=== PATIENT | male | born 2000 | race Hispanic/Latino ===

== ENCOUNTER 2019-08-14 17:40 | Observation (INO) | payer BC ==
[~2019-08-14] VITALS: Ht 177.8 cm; Wt 59.4 kg
[2019-08-14] MEDS ORDERED: ONDANSETRON HCL INJ 2MG/ML 2ML 2 MG/ML VIAL IV STA (20:04)
[2019-08-14] MEDS ORDERED: FAMOTIDINE 20 MG/2 ML VIAL IV STA (20:04)
[2019-08-14] MEDS ORDERED: ONDANSETRON HCL INJ 2MG/ML 2ML 2 MG/ML VIAL ONE (20:07)
[2019-08-14] MEDS ORDERED: SODIUM CHLORIDE 0.9% 1000ML 1,000 ML ONE (20:07)
--- NOTE | 2019-08-14 20:12 | Emergency Department Note ---
History of Present Illnes History of Present Illness Chief Complaint: General Medicine Complaints History of Present Illness This is a 19 year old male with type I NIDDM, who is brought in by his older brother with a six-day history of persistent vomiting, dizziness, and upper abdominal pain. Patient's been drinking Pedialyte and water, and he is also try to eat crackers, but is unable to keep anything down. His family states that he's lost 30 pounds in the last several weeks. Patient is noncompliant with his insulin regimen, primarily because he has not had health care insurance. Patient states that he was hospitalized for similar symptoms at another healthcare facility back in December 2018. Patient denies drinking alcohol or using any drugs, including marijuana. He denies any dysuria, frequency, urgency, fever, chills, cough, or upper respiratory symptoms. He has not had a bowel movement within the last several days, he believes because he is not eating anything. Patient's checked his blood sugar over the last couple of days, and it's been in the low 200 range. He has not been on insulin in a number of months. Patient was apparently diagnosed with type 1 diabetes at age 13 years, a nd he has not been consistently treated with a insulin since his diagnosis. 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: No Onset (how long ago): day(s) (6) Location: epigastric Quality: dull, constant ache Radiation: Reports non-radiation Severity: moderate Onset quality: sudden Duration (how long): day(s) (6) Timing of current episode: constant Progression: unchanged Chronicity: recurrent (similar symptoms in 12/2018) Context: Reports non-compliance w/ medications (primarily due to lack of insurance.); Denies recent illness, Denies recent surgery, Denies recent travel, Denies trauma/injury, Denies new medications Relieving factors: none Exacerbating factors: none Associated symptoms: Reports loss of appetite, Reports malaise, Reports nausea/vomiting; Denies chest pain, Denies cough, Denies fever/chills, Denies shortness of breath, Denies syncope, Denies weakness Treatments prior to arrival: none Risk factors: non-compliance Past Medical/Family History Physician Review I have reviewed the patient's past medical and family history. Any updates have been documented here. Past Medical History Recent Fever: No Clinical Suspicion of Infectio: No New/Unexplained Change in Ment: No Past Medical History: Diabetes (type I NIDDM) Past Surgical History: None Social History Smoking Cessation: Never Smoker Counseling Performed: No Alcohol Use: None Any Illegal Drug Use: No TB Exposure/Symptoms: No Physically hurt or threatened: No Family History Family history of heart diseas: No Other Last Tetanus: UNK Any Pre-Existing Lines (PICC,: No Is patient up to date on immun: No Last Flu: UNK Last Pneumovax: UNK Review of Systems Review of Systems Constitutional: Denies chills, Denies fever EENTM: Reports no symptoms Cardiovascular: Denies chest pain, Denies palpitations, Denies syncope Respiratory: Reports no symptoms; Denies pain with cough, Denies dyspnea, Denies dyspnea on exertion Gastrointestinal: Reports abdominal pain, Reports nausea, Reports vomiting; Denies constipation Genitourinary: Reports no symptoms Musculoskeletal: Reports no symptoms Integumentary: Reports no symptoms Neurological: Reports no symptoms Psychological: Reports no symptoms Endocrine: Reports no symptoms Hematological/Lymphatic: Reports no symptoms Review of other systems: All other systems negative Physical Exam Related Data Allergies: Coded Allergies: No Known Allergies (Unverified , 08/14/19) Triage Vital Signs Vital Signs Date Time Temp Pulse Resp B/P (MAP) Pulse Ox O2 Delivery O2 Flow Rate FiO2 08/14/19 19:15 98.9 110 18 129/83 98 Vital signs reviewed: Yes Physical Exam CONSTITUTIONAL Constitutional: Present well-developed, Present well-nourished, Present ill appearing (chronically ill-appearing young male) HENT HENT: Present normocephalic, Present atraumatic, Present oropharynx clear/moist, Present nose normal HENT L/R: Present left ext ear normal, Present right ext ear normal EYES Eyes: Reports PERRL, Reports conjunctivae normal NECK Neck: Present ROM normal, Present supple; Absent cervical adenopathy PULMONARY Pulmonary: Present effort normal, Present breath sounds normal; Absent respiratory distress CARDIOVASCULAR Cardiovascular: Present regular rhythm, Present heart sounds normal, Present capillary refill normal, Present normal rate GASTROINTESTINAL Abdominal: Present soft, Present bowel sounds normal, Present tender (mild epigastric tenderness to palpation with no rebound or guarding;); Absent rebound GENITOURINARY Genitourinary: Present exam deferred SKIN Skin: Present warm MUSCULOSKELETAL Musculoskeletal: Present ROM normal NEUROLOGICAL Neurological: Present alert, Present oriented x 3, Present no gross motor or sensory deficits PSYCHOLOGICAL Psychological: Present mood/affect normal, Present judgement normal Results Laboratory Lab results reviewed: Yes Laboratory comments CBC - nl CMP - nl, except for Cl = 95, Gluc = 289; AG = 17 LFT's - nl except for Tbili = 1.7 UA - glu = 500 mg/dl, Juan - small, ket = 160 mg/dl; serum ketones - > 2 (results after patient transferred to [facility]) Imaging Imaging results reviewed: Yes Impressions [facility] [address] [address] Patient Name: MILENA ARELLANO MR #: [id number] : 2000 Age/Sex: 19/M Req #: [id number] Adm Physician: Ordered by: DEBBIE ACOSTA MD Report #: [id number] Location: [facility] Room/Bed: Procedure: [id number] HOPD/CT ABD/PEL WITH CONTRAST-HOPD Exam Date: 08/14/19 Exam Time: 2044 REPORT STATUS: Signed EXAM: CT Abdomen and Pelvis WITH contrast INDICATION: ^abdominal pain vomiting ^[id number] ^2044 COMPARISON: None. TECHNIQUE: Abdomen and pelvis were scanned utilizing a multidetector helical scanner from the lung base to the pubic symphysis after administration of IV contrast. Coronal and sagittal reformations were obtained. Dose modulation, iterative reconstruction, and/or weight based adjustment of the mA/kV was utilized to reduce the radiation dose to as low as reasonably achievable. Routine protocol was performed. Scan was performed when during portal venous phase. IV CONTRAST: 100 mL of Isovue-370 ORAL CONTRAST: None COMPLICATIONS: None RADIATION DOSE: Total DLP: 372.87 mGy*cm Estimated effective dose: (DLP x 0.015 x size factor) mSv CTDIvol has been reviewed. It is below the limits set by the Radiation Protocol Committee (RPC). FINDINGS: LINES and TUBES: None. LOWER THORAX: Unremarkable HEPATOBILIARY: No focal hepatic lesions. No biliary ductal dilation. GALLBLADDER: No radio-opaque stones or sludge. No wall thickening. SPLEEN: No splenomegaly. PANCREAS: No focal masses or ductal dilatation. ADRENALS: No adrenal nodules KIDNEYS/URETERS: Kidneys enhance symmetrically. No hydronephrosis. No cystic or solid mass lesions. No stones. GI TRACT: No abnormal distention, wall thickening, or evidence of bowel obstruction. Appendix is normal. PELVIC ORGANS/BLADDER: Bladder wall thickening. LYMPH NODES: No lymphadenopathy. VESSELS: Unremarkable. PERITONEUM / RETROPERITONEUM: No free air or fluid. BONES: Unremarkable. SOFT TISSUES: Unremarkable. IMPRESSION: 1. Bladder wall thickening, could be due to incomplete distention or cystitis in the appropriate clinical context. Otherwise, no acute inflammatory process in the abdomen/pelvis. Signed by: Dr. Adan Whitlock MD on 08/14/2019 9:16 PM Dictated By: ADAN WHITLOCK MD 15 Transcribed By: KELLI on 08/14/192115 COPY TO: DEBBIE ACOSTA MD~ Diagnostics Tests Diagnostic test(s) reviewed: Yes Assessment & Plan Medical Decision Making [facility] 22:25, case discussed with Dr. Ruiz - who accepted admission of patient. It was not clear to me at that time that patient was in DKA. - Patient is an uncontrolled type 1 diabetic, who presents with 6 days of persistent vomiting, dizziness, and upper abdominal pain. His initial blood sugar was 289 with a normal CO2, but a low chloride of 95, indicating a probable contracture alkalosis, due to dehydration. His anion gap is calculated at 17, and he has ketones in his urine. Serum ketones were ordered, but not resulted until after patient was transferred to [facility]. - Patient received 10 units of regular insulin subcutaneous prior to transfer, which brought his blood sugar down to 196. He received 2 L of fluid while here in the emergency room. He may require further hydration. - If morning labs indicate a persistent anion gap and elevated serum acetone, then patient will likely require an insulin drip. All of his presenting symptoms can be accounted for by his poorly controlled diabetes, and what initially seemed to be a mild case of DKA. He may also have some component of gastroparesis, though symptoms are more than likely due to DKA. -Patient is agreeable to admission, and discussed care with patient, older brother, and his mom by phone. - Patient states he does have health insurance through his job, but he has not established a primary care physician. Stressed the importance of this to patient, as well as his taking ownership of his diabetes and managing it as clean as possible, to prevent long-term problems, including renal failure, heart failure, coronary artery disease, blindness, and a variety of other serious health problems. Patient was understanding of the plan. Assessment & Plan Final Impression: (1) DKA, type 1 (2) Persistent vomiting (3) Abdominal pain (4) Uncontrolled diabetes mellitus Depart Disposition: ADMITTED Last Vital Signs Date Time Temp Pulse Resp B/P (MAP) Pulse Ox O2 Delivery O2 Flow Rate FiO2 08/14/19 19:15 98.9 110 18 129/83 98 Medications in the ED Ondansetron HCl 4 mg STK-MED ONCE .ROUTE ; Start 08/14/19 at 20:07; Stop 08/14/19 at 20:02; Status DC Sodium Chloride 1,000 ml @ ud STK-MED ONCE .ROUTE ; Start 08/14/19 at 20:07; Stop 08/14/19 at 20:02; Status DC Sodium Chloride 1,000 ml @ 0 mls/hr Q0M IV ; Start 08/14/19 at 20:15; Stop 09/13/19 at 20:14; Status UNV Ondansetron HCl 4 mg NOW STAT IV ; Start 08/14/19 at 20:04; Stop 08/14/19 at 20:05; Status UNV Famotidine 20 mg NOW STAT IV ; Start 08/14/19 at 20:04; Stop 08/14/19 at 20:09; Status DC DEBBIE ACOSTA MD Aug 14, 2019 20:12
[2019-08-14] MEDS ORDERED: SODIUM CHLORIDE 0.9% 1000ML 1,000 ML IV SCH (20:15)
[2019-08-14] MEDS ORDERED: IOPAMIDOL 370 MG/ML 200 ML INFUS..BTL INJ ONE (20:30)
[2019-08-14] MEDS ORDERED: SODIUM CHLORIDE 0.9% 50ML 50 ML ONE (20:30)
--- NOTE | 2019-08-14 21:19 | Diagnostic Imaging Report ---
EXAM: CT Abdomen and Pelvis WITH contrast INDICATION: ^abdominal pain vomiting ^[id number] ^2044 COMPARISON: None. TECHNIQUE: Abdomen and pelvis were scanned utilizing a multidetector helical scanner from the lung base to the pubic symphysis after administration of IV contrast. Coronal and sagittal reformations were obtained. Dose modulation, iterative reconstruction, and/or weight based adjustment of the mA/kV was utilized to reduce the radiation dose to as low as reasonably achievable. Routine protocol was performed. Scan was performed when during portal venous phase. IV CONTRAST: 100 mL of Isovue-370 ORAL CONTRAST: None COMPLICATIONS: None RADIATION DOSE: Total DLP: 372.87 mGy*cm Estimated effective dose: (DLP x 0.015 x size factor) mSv CTDIvol has been reviewed. It is below the limits set by the Radiation Protocol Committee (RPC). FINDINGS: LINES and TUBES: None. LOWER THORAX: Unremarkable HEPATOBILIARY: No focal hepatic lesions. No biliary ductal dilation. GALLBLADDER: No radio-opaque stones or sludge. No wall thickening. SPLEEN: No splenomegaly. PANCREAS: No focal masses or ductal dilatation. ADRENALS: No adrenal nodules KIDNEYS/URETERS: Kidneys enhance symmetrically. No hydronephrosis. No cystic or solid mass lesions. No stones. GI TRACT: No abnormal distention, wall thickening, or evidence of bowel obstruction. Appendix is normal. PELVIC ORGANS/BLADDER: Bladder wall thickening. LYMPH NODES: No lymphadenopathy. VESSELS: Unremarkable. PERITONEUM / RETROPERITONEUM: No free air or fluid. BONES: Unremarkable. SOFT TISSUES: Unremarkable. IMPRESSION: 1. Bladder wall thickening, could be due to incomplete distention or cystitis in the appropriate clinical context. Otherwise, no acute inflammatory process in the abdomen/pelvis. Signed by: Dr. Adan Sun MD on 08/14/2019 9:16 PM
[2019-08-14] MEDS ORDERED: SODIUM CHLORIDE FLUSH 10 ML SYR INJ PRN (23:00)
[2019-08-14] MEDS ORDERED: MORPHINE SULFATE 2 MG/ML SYR 1ML IV PRN (23:10)
[2019-08-14] MEDS ORDERED: DICYCLOMINE HCL 20 MG TAB PO ONE (23:15)
[2019-08-14] MEDS ORDERED: DICYCLOMINE HCL 10 MG CAP ONE (23:58)
[2019-08-15] VITALS (8 sets, daily range): BP systolic 131–142; BP diastolic 67–96
[2019-08-15] MEDS ORDERED: INSULIN REGULAR, HUMAN 100 UNIT/1 ML 3ML VIAL SQ ONE (00:15)
[2019-08-15] MEDS ORDERED: SODIUM CHLORIDE 0.9% 1000ML 1,000 ML IV SCH (00:15)
[2019-08-15] MEDS ORDERED: ONDANSETRON HCL INJ 2MG/ML 2ML 2 MG/ML VIAL IV PRN (01:30)
[2019-08-15] MEDS ORDERED: ACETAMINOPHEN 325 MG TAB PO PRN (06:00)
[2019-08-15] MEDS ORDERED: DEXTROSE 50% SYRINGE 50 ML IV PRN (06:00)
[2019-08-15] MEDS ORDERED: ZOLPIDEM TARTRATE 5 MG TAB PO PRN (06:00)
[2019-08-15] MEDS ORDERED: DOCUSATE SODIUM 100 MG CAP PO PRN (06:00)
[2019-08-15] MEDS ORDERED: PROMETHAZINE 12.5MG/ NACL 0.9% 12.5 MG/50 ML BAG IV PRN (06:00)
--- NOTE | 2019-08-15 06:01 | NUR ---
H&P cc: N/V HPI: 19yoM, PCP None, developed N/V, found to be in near DKA; transferred from free standing to our facility. PMH: DM1, Cig use PShx: none Allergies; see emr FHSH: cigs socially; single meds; see MAR ROS: no f/c/s/BARNES/dizziness/confusion/vision changes/leg pain/skin rash/mood chanes v/s; revd PE tired appearing anicteric ns1s2 mod bs soft nt nd no e/t skin dry n. affect a&ox3; noriega labs/meds revd A/P: INtractable N/V- antiemetics Dehydration- IVF DM type 1- check hab1c/lipids; SSI Underweight- BMI 18.8 Prop: scd; pepcid dispo: f/u labs Kristopher Ruiz MD, PHD.
--- NOTE | 2019-08-15 07:00 | NUR ---
BEDSIDE SHIFT REPORT RECEIVED PT IN STABLE CONDITION, CARIE PAIN, NAUSEA OR VOMITING AT THIS TIME, UPDATED ON POC VOICED UNDERSTANDING, CALL LIGHT IN REACH WILL CONTINUE TO MONITOR
[2019-08-15] MEDS: INSULIN REGULAR, HUMAN 100 UNIT/1 ML 3ML VIAL SQ SCH ×3 (07:30→16:30)
[2019-08-15 08:03] LABS: BASOPHILS % 0.3 % (0.0-1.0); EOSINOPHILS % 0.4 % (0.0-6.0); HEMOGLOBIN 14.8 g/dL (14.0-18.0); LYMPHOCYTES # (AUTO) 3.2 (1.0-3.2); MEAN CORPUSCULAR HEMOGLOBIN 30.9 pg (28-32); MEAN CORPUSCULAR HGB CONC 35.2 g/dL (31-35); MEAN CORPUSCULAR VOLUME 87.7 fL (81-99); MONOCYTES # (AUTO) 0.9 (0.2-0.8); MONOCYTES % 9.8 % (4.4-11.3); NEUTROPHILS # (AUTO) 5.1 (2.1-6.9); NEUTROPHILS % 55.2 % (38.7-80.0); PLATELET COUNT 250 x10e3/uL (140-360); RED BLOOD COUNT 4.79 x10e6/uL (4.3-5.7); RED CELL DISTRIBUTION WIDTH 11.4 % (11.7-14.4)
[2019-08-15 08:18] LABS: BLOOD UREA NITROGEN 17 mg/dL (7-26); BUN/CREATININE RATIO 20 (6-25); CALCIUM 9.1 mg/dL (8.4-10.2); CARBON DIOXIDE 25 mmol/L (22-29); CHLORIDE 100 mmol/L (98-107); CREATININE, SERUM 0.86 mg/dL (0.72-1.25); EST GLOMERULAR FILTRATION RATE > 60 ML/MIN (60-); GLUCOSE 184 mg/dL (74-118); SODIUM 133 mmol/L (136-145)
[2019-08-15 08:36] LABS: CHOL/HDL RATIO 6.2 (3.9-4.7)
[2019-08-15] MEDS ORDERED: LEVEMIR FL100 UNIT/1 SC (16:20)
--- NOTE | 2019-08-15 16:27 | NUR ---
D/C summary Principal dx: INtractable N/V- antiemetics Dehydration- IVF DM type 1- check hab1c/LDL = 11.5/107; Underweight- BMI 18.8 Prop: scd; pepcid dispo: f/u labs d/c home on levemir 5 units q12 f/u Dr.James alamo d/c>35mins Kristopher Ruiz MD, PHD.
--- NOTE | 2019-08-15 16:35 | NUR ---
PHARMACY NUMBER GIVEN TO DR. JAEGER ([facility] [phone])
--- NOTE | 2019-08-15 17:36 | NUR ---
PT STATES, HE FEELS NAUSEAS BUT DOES NOT NEED TO VOMIT, NOTIFIED DR JAEGER INFORMED OF WHAT PT STATES, MD STATES " TO WATCH PT AND RELEASE LATER"
[2019-08-15] MEDS ORDERED: ZOFRAN4 MG PO (17:39)
--- NOTE | 2019-08-15 19:12 | NUR ---
WALKING ROUNDS PERFORMED, RECEIVED PT LAYING SEMI FOWLERS IN BED, AAOX3, RR EVEN AND NON-LABORED, ON ROOM AIR. PT REPORTS MILD NAUSEA BUT ALSO STATES HE DOESN'T THINK HE WILL THROW UP. LEFT PT LAYING SEMI FOWLERS IN BED, BED IN LOW LOCKED POSITION, SIDE RAILS UPX2, CALL LIGHT AND PHONE WITHIN REACH.
--- NOTE | 2019-08-15 19:17 | NUR ---
SPOKE WITH MD JAEGER CONCERNING DISCHARGE. PT REPORTS HE STILL FEELS A LITTLE NAUSEATED BUT HAS NOT VOMITED IN 2 DAYS. PT STATES HE FEELS OK TO GO HOME. OK TO CONTINUE WITH DISCHARGE AND TO INFORM PT THAT MEDICATIONS HAVE BEEN CALLED TO THE PHARMACY.
--- NOTE | 2019-08-15 20:07 | NUR ---
IV DISCONTINUED FROM (L)FA. PRESSURE AND DRESSING APPLIED. CATHETER TIP INTACT.
--- NOTE | 2019-08-15 20:10 | NUR ---
PT ESCORTED BY PCT TO FRONT OF HOSPITAL TO MEET PRIVATE AUTO. PT IN STABLE CONDITION. NO S/SX OF DISTRESS NOTED. STEADY GAIT.
== END 2019-08-15 20:10 | disposition home or self-care (01) ==
LOC: FSED 17:40 → ERHOLD 22:58 → MED/SURG 08-15 01:08
PROVIDERS: ADMIT Internal Medicine; ATTEND Internal Medicine
DX: E10.10 Type 1 diabetes mellitus with ketoacidosis without coma (principal); E86.0 Dehydration; R63.6 Underweight; Z68.1 Body mass index [BMI] 19.9 or less, adult; Z72.0 Tobacco use; Z91.120 Patient's intentional underdosing of medication regimen due to financial hardship; Z79.4 Long term (current) use of insulin; R11.15 Cyclical vomiting syndrome unrelated to migraine; Z11.59 Encounter for screening for other viral diseases
CPT/HCPCS: 36415 ×2; 74177; 80048; 80053; 80061; 80076; 81003; 82948 ×2; 83036; 85025; 87635; 99284; G0378 ×2; J1817; J2405 ×2; J7030 ×2; Q9967

== ENCOUNTER 2021-08-24 21:16 | Emergency (ER) | payer OTHER ==
[~2021-08-24] VITALS: Ht 177.8 cm; Wt 80.3 kg
[~2021-08-24 21:16] MED LIST: LEVEMIR FL100 UNIT/1 SC; ZOFRAN4 MG PO
[2021-08-24] MEDS ORDERED: IBUPROFEN200 MG PO (21:42)
[2021-08-24] MEDS ORDERED: ONDANSETRON ODT4 MG PO (21:42)
[2021-08-24] MEDS ORDERED: ACETAMINOPHEN-1 EAC4 PO (21:42)
[2021-08-24] MEDS ORDERED: IBUPROFEN 200 MG TAB PO ONE (21:45)
[2021-08-24] MEDS ORDERED: ONDANSETRON HCL 4 MG ORAL DISINTEGRATING TAB PO ONE (21:45)
[2021-08-24] MEDS ORDERED: HYDROCODONE/APAP 5MG-325MG TAB PO ONE (21:45)
[2021-08-24] MEDS ORDERED: ONDANSETRON HCL 4 MG ORAL DISINTEGRATING TAB ONE (22:02)
[2021-08-24] MEDS ORDERED: IBUPROFEN 600 MG TAB ONE (22:02)
[2021-08-24] MEDS ORDERED: HYDROCODONE/APAP 5MG-325MG TAB ONE (22:03)
== END 2021-08-24 23:26 | disposition home or self-care (01) ==
LOC: FSED 21:33
DX: S62.397A Other fracture of fifth metacarpal bone, left hand, initial encounter for closed fracture (principal); W01.0XXA Fall on same level from slipping, tripping and stumbling without subsequent striking against object, initial encounter; Y93.02 Activity, running; Y92.89 Other specified places as the place of occurrence of the external cause; E10.9 Type 1 diabetes mellitus without complications
CPT/HCPCS: 99283; Q0162

== ENCOUNTER 2021-09-17 10:21 | Inpatient (IN) | payer OTHER ==
[~2021-09-17] VITALS: Ht 172.7 cm; Wt 81.6 kg
[~2021-09-17 10:21] MED LIST changes: +ACETAMINOPHEN-1 EAC4 PO; +IBUPROFEN200 MG PO; +ONDANSETRON ODT4 MG PO
[2021-09-17] MEDS ORDERED: ONDANSETRON HCL INJ 2MG/ML 2ML 2 MG/ML VIAL IV STA (10:49)
[2021-09-17] MEDS ORDERED: KETOROLAC TROMETHAMINE 30 MG/ML VIAL IV STA (10:49)
[2021-09-17] MEDS ORDERED: FAMOTIDINE 20 MG/2 ML VIAL IV STA (10:49)
[2021-09-17] MEDS ORDERED: DICYCLOMINE HCL 20 MG/2 ML VIAL IM ONE ×2 (11:00→11:07)
[2021-09-17] MEDS ORDERED: SODIUM CHLORIDE 0.9% 1000ML 1,000 ML IV ONE ×2 (11:00→13:15)
[2021-09-17] MEDS ORDERED: FAMOTIDINE 20 MG/2 ML VIAL IV ONE ×2 (11:07→11:17)
[2021-09-17] MEDS ORDERED: SODIUM CHLORIDE 0.9% 1000ML 1,000 ML ONE ×2 (11:07→11:50)
[2021-09-17] MEDS ORDERED: INSULIN REGULAR, HUMAN 100 UNIT/1 ML IV ONE (11:30)
[2021-09-17] MEDS ORDERED: INSULIN REGULAR, HUMAN 100 UNIT/1 ML ONE (11:40)
[2021-09-17] MEDS ORDERED: IOPAMIDOL 370 MG/ML 100 ML INFUS..BTL INJ ONE (12:08)
[2021-09-17] MEDS ORDERED: PAXLOVID 150-11 EACH PO (14:44)
[2021-09-17] MEDS ORDERED: METOCLOPRAMIDE HCL 10 MG/2ML VIAL IV ONE (14:45)
[2021-09-17] MEDS ORDERED: METOCLOPRAMIDE HCL 10 MG/2ML VIAL ONE (14:52)
[2021-09-17] MEDS ORDERED: DICYCLOMINE HCL 10 MG CAP ONE (15:03)
[2021-09-17] MEDS ORDERED: ONDANSETRON HCL INJ 2MG/ML 2ML 2 MG/ML VIAL IV PRN (15:30)
[2021-09-17] MEDS ORDERED: DEXTROSE 50% SYRINGE 50 ML IV PRN (15:30)
[2021-09-17] MEDS: KETOROLAC TROMETHAMINE 30 MG/ML VIAL IV PRN (17:30)
[2021-09-17] MEDS: FAMOTIDINE 20 MG/2 ML VIAL IV SCH (17:31)
[2021-09-17] MEDS: SODIUM CHLORIDE 0.9% 1000ML 1,000 ML IV SCH ×2 (17:31→21:20)
[2021-09-17] MEDS: INSULIN LISPRO 100 UNIT/1 ML 3ML VIAL SQ SCH ×2 (17:31→21:15)
[2021-09-17] MEDS: DICYCLOMINE HCL 20 MG TAB PO SCH ×2 (17:31→21:12)
[2021-09-17] MEDS ORDERED: Morphine 2mg Syringe 2 MG/ML SYR IV PRN (17:45)
[2021-09-17 18:21] VITALS: BP 157/86
[2021-09-17 18:36] VITALS: BP 157/86
[2021-09-17 19:47] VITALS: BP 114/63
[2021-09-17] MEDS: INSULIN GLARGINE 100 UNITS/ML VIAL SQ SCH (21:15)
[2021-09-17 21:29] VITALS: BP 114/63
[2021-09-18] VITALS (8 sets, daily range): BP systolic 115–144; BP diastolic 60–83
[2021-09-18] MEDS: METOCLOPRAMIDE HCL 10 MG/2ML VIAL IV SCH ×4 (00:26→16:43)
[2021-09-18] MEDS: SODIUM CHLORIDE 0.9% 1000ML 1,000 ML IV SCH ×3 (01:30→21:15)
[2021-09-18 07:07] LABS: CHOL/HDL RATIO 6.2 (3.9-4.7); MAGNESIUM 1.9 MG/DL (1.3-2.1); PHOSPHORUS 2.6 MG/DL (2.3-4.7)
[2021-09-18] MEDS: INSULIN LISPRO 100 UNIT/1 ML 3ML VIAL SQ SCH ×4 (07:30→20:39)
[2021-09-18 07:43] LABS: BASOPHILS % 0.3 % (0.0-1.0); EOSINOPHILS % 0.3 % (0.0-6.0); HEMATOCRIT 41.5 % (38.2-49.6); HEMOGLOBIN 14.2 g/dL (14.0-18.0); LYMPHOCYTES # (AUTO) 2.1 (1.0-3.2); LYMPHOCYTES % 14.8 % (18.0-39.1); MEAN CORPUSCULAR HEMOGLOBIN 31.9 pg (28-32); MEAN CORPUSCULAR HGB CONC 34.2 g/dL (31-35); MEAN CORPUSCULAR VOLUME 93.3 fL (81-99); MONOCYTES # (AUTO) 1.5 (0.2-0.8); MONOCYTES % 10.5 % (4.4-11.3); NEUTROPHILS # (AUTO) 10.4 (2.1-6.9); NEUTROPHILS % 73.6 % (38.7-80.0); PLATELET COUNT 226 x10e3/uL (140-360); RED BLOOD COUNT 4.45 x10e6/uL (4.3-5.7); RED CELL DISTRIBUTION WIDTH 12.2 % (11.7-14.4)
[2021-09-18 07:59] LABS: ALBUMIN 3.5 g/dL (3.5-5.0); ALBUMIN/GLOBULIN RATIO 1.4 (0.8-2.0); CALCIUM 8.4 mg/dL (8.4-10.2); CREATININE, SERUM 0.8 mg/dL (0.72-1.25)
[2021-09-18] MEDS: KETOROLAC TROMETHAMINE 30 MG/ML VIAL IV PRN ×2 (08:20→16:43)
[2021-09-18] MEDS: FAMOTIDINE 20 MG/2 ML VIAL IV SCH ×2 (08:20→16:43)
[2021-09-18] MEDS: DICYCLOMINE HCL 20 MG TAB PO SCH ×4 (09:00→21:15)
[2021-09-18 10:09] LABS: HEMATOCRIT 42.4 % (38.2-49.6); HEMOGLOBIN 14.6 g/dL (14.0-18.0); MEAN CORPUSCULAR HEMOGLOBIN 31.8 pg (28-32); MEAN CORPUSCULAR HGB CONC 34.4 g/dL (31-35); MEAN CORPUSCULAR VOLUME 92.4 fL (81-99); PLATELET COUNT 226 x10e3/uL (140-360); RED BLOOD COUNT 4.59 x10e6/uL (4.3-5.7); RED CELL DISTRIBUTION WIDTH 12.1 % (11.7-14.4)
[2021-09-18 10:33] LABS: ALBUMIN 3.8 g/dL (3.5-5.0); ALBUMIN/GLOBULIN RATIO 1.5 (0.8-2.0); ANION GAP 14.7 mmol/L (8-16); CALCIUM 8.2 mg/dL (8.4-10.2); CREATININE, SERUM 0.78 mg/dL (0.72-1.25); POTASSIUM 3.7 mmol/L (3.5-5.1)
[2021-09-18 10:52] LABS: LYMPHOCYTES % (MANUAL) 12 % (19-48); MONOCYTES % (MANUAL) 5 % (3.4-9.0); NEUTROPHILS % (MANUAL) 82 % (40-74)
[2021-09-18 10:53] LABS: AMYLASE 32 U/L (25-125); LIPASE 6 U/L (8-78); PLATELET ESTIMATE ADEQUATE; PLATELET MORPHOLOGY COMMENT NORMAL; RBC MORPHOLOGY COMMENT NORMAL
[2021-09-18] MEDS ORDERED: PROMETHAZINE 12.5MG/ NACL 0.9% 12.5 MG/50 ML BAG IV ONE (15:30)
[2021-09-18] MEDS: ENOXAPARIN SOD INJ 40 MG/0.4 ML SYR SC SCH (17:32)
[2021-09-18] MEDS: INSULIN GLARGINE 100 UNITS/ML VIAL SQ SCH (20:39)
[2021-09-19] VITALS (8 sets, daily range): BP systolic 110–151; BP diastolic 61–86
[2021-09-19 00:35] LABS: BASOPHILS % 0.2 % (0.0-1.0); EOSINOPHILS # (AUTO) 0.1 (0.0-0.4); EOSINOPHILS % 0.8 % (0.0-6.0); HEMATOCRIT 40.4 % (38.2-49.6); HEMOGLOBIN 13.9 g/dL (14.0-18.0); LYMPHOCYTES # (AUTO) 2.4 (1.0-3.2); LYMPHOCYTES % 19.9 % (18.0-39.1); MEAN CORPUSCULAR HEMOGLOBIN 31.6 pg (28-32); MEAN CORPUSCULAR HGB CONC 34.4 g/dL (31-35); MEAN CORPUSCULAR VOLUME 91.8 fL (81-99); MONOCYTES # (AUTO) 1.4 (0.2-0.8); MONOCYTES % 11.7 % (4.4-11.3); NEUTROPHILS # (AUTO) 7.9 (2.1-6.9); NEUTROPHILS % 67.1 % (38.7-80.0); PLATELET COUNT 213 x10e3/uL (140-360); RED CELL DISTRIBUTION WIDTH 11.8 % (11.7-14.4)
[2021-09-19] MEDS: METOCLOPRAMIDE HCL 10 MG/2ML VIAL IV SCH ×4 (01:10→17:16)
[2021-09-19] MEDS: SODIUM CHLORIDE 0.9% 1000ML 1,000 ML IV SCH ×2 (05:54→16:53)
[2021-09-19 06:44] LABS: BASOPHILS % 0.3 % (0.0-1.0); EOSINOPHILS # (AUTO) 0.1 (0.0-0.4); EOSINOPHILS % 1.1 % (0.0-6.0); HEMATOCRIT 39.7 % (38.2-49.6); LYMPHOCYTES # (AUTO) 2.1 (1.0-3.2); LYMPHOCYTES % 17.9 % (18.0-39.1); MEAN CORPUSCULAR HEMOGLOBIN 31.9 pg (28-32); MEAN CORPUSCULAR HGB CONC 35.3 g/dL (31-35); MEAN CORPUSCULAR VOLUME 90.4 fL (81-99); MONOCYTES # (AUTO) 1.5 (0.2-0.8); MONOCYTES % 12.7 % (4.4-11.3); NEUTROPHILS # (AUTO) 7.7 (2.1-6.9); NEUTROPHILS % 67.6 % (38.7-80.0); PLATELET COUNT 220 x10e3/uL (140-360); RED BLOOD COUNT 4.39 x10e6/uL (4.3-5.7); RED CELL DISTRIBUTION WIDTH 11.9 % (11.7-14.4)
[2021-09-19 07:08] LABS: ALBUMIN 3.3 g/dL (3.5-5.0); ALBUMIN/GLOBULIN RATIO 1.2 (0.8-2.0); ANION GAP 13.1 mmol/L (8-16); CALCIUM 7.9 mg/dL (8.4-10.2); CREATININE, SERUM 0.75 mg/dL (0.72-1.25); MAGNESIUM 1.8 MG/DL (1.3-2.1); PHOSPHORUS 2.7 MG/DL (2.3-4.7); POTASSIUM 3.1 mmol/L (3.5-5.1)
[2021-09-19] MEDS: INSULIN LISPRO 100 UNIT/1 ML 3ML VIAL SQ SCH ×4 (07:30→21:30)
[2021-09-19] MEDS ORDERED: MIDAZOLAM HCL 2 MG/2 ML VIAL ONE (08:20)
[2021-09-19] MEDS ORDERED: FENTANYL CITRATE/PF 100MCG/2 ML INJ ONE (08:20)
[2021-09-19] MEDS: FAMOTIDINE 20 MG/2 ML VIAL IV SCH ×2 (08:41→17:16)
[2021-09-19] MEDS: DICYCLOMINE HCL 20 MG TAB PO SCH ×4 (08:42→21:30)
[2021-09-19] MEDS ORDERED: POVIDONE IODINE 0.05% 0.05 % ML PO ONE (13:38)
[2021-09-19] MEDS ORDERED: LIDOCAINE HCL 2% LOCAL INJ 5 ML SDV VIAL INJ ONE (13:38)
[2021-09-19] MEDS ORDERED: PROPOFOL IV EMULSION 10 MG/ML 20 ML VIAL ONE (13:38)
[2021-09-19] MEDS: ENOXAPARIN SOD INJ 40 MG/0.4 ML SYR SC SCH (17:16)
[2021-09-19] MEDS: INSULIN GLARGINE 100 UNITS/ML VIAL SQ SCH (21:30)
[2021-09-20] VITALS: BP 121/66
[2021-09-20] MEDS: METOCLOPRAMIDE HCL 10 MG/2ML VIAL IV SCH ×4 (00:45→11:12)
[2021-09-20] MEDS: SODIUM CHLORIDE 0.9% 1000ML 1,000 ML IV SCH (03:06)
[2021-09-20 04:00] VITALS: BP 130/71
[2021-09-20 08:02] VITALS: BP 126/77
[2021-09-20] MEDS: FAMOTIDINE 20 MG/2 ML VIAL IV SCH (08:02)
[2021-09-20] MEDS: DICYCLOMINE HCL 20 MG TAB PO SCH (08:02)
[2021-09-20] MEDS: INSULIN LISPRO 100 UNIT/1 ML 3ML VIAL SQ SCH ×2 (08:05→11:30)
[2021-09-20 08:37] VITALS: BP 126/77
[2021-09-20 11:29] VITALS: BP 109/79
[2021-09-20] MEDS ORDERED: PROTONIX20 MG PO (12:00)
[2021-09-20] MEDS ORDERED: REGLAN5 MG PO (12:00)
[2021-09-20] MEDS ORDERED: DICYCLOMINE HCL20 MG PO (12:00)
[2021-09-20] MEDS ORDERED: ONDANSETRON HCL4 MG PO (12:00)
[2021-09-20] MEDS ORDERED: POTASSIUM CHLORIDE 10MEQ EA PO ONE (12:30)
[2021-09-20] MEDS ORDERED: ONDANSETRON HCL 4 MG ORAL DISINTEGRATING TAB PO PRN (12:45)
[2021-09-20] MEDS ORDERED: METOCLOPRAMIDE HCL 10 MG TAB PO SCH (16:30)
[2021-09-20] MEDS ORDERED: FAMOTIDINE 20 MG TAB PO SCH (16:30)
== END 2021-09-20 13:02 | disposition home or self-care (01) | DRG 177 ==
LOC: FSED 10:33 → ERHOLD 15:32 → MED/SURG2 16:47
PROVIDERS: ADMIT Internal Medicine Critical Care Medicine; ATTEND Internal Medicine Critical Care Medicine
PROC: 0DB68ZX Excision of Stomach, Via Natural or Artificial Opening Endoscopic, Diagnostic (ICD-10-PCS; principal; 2021-09-19 16:15)
DX: U07.1 COVID-19 (principal); E10.10 Type 1 diabetes mellitus with ketoacidosis without coma; Z79.4 Long term (current) use of insulin; K31.84 Gastroparesis; F17.210 Nicotine dependence, cigarettes, uncomplicated; K20.90 Esophagitis, unspecified without bleeding; K29.70 Gastritis, unspecified, without bleeding; K25.9 Gastric ulcer, unspecified as acute or chronic, without hemorrhage or perforation; K29.80 Duodenitis without bleeding; K31.9 Disease of stomach and duodenum, unspecified; E10.43 Type 1 diabetes mellitus with diabetic autonomic (poly)neuropathy
CPT/HCPCS: 0223U; 36415; 43239; 71045; 74019; 74177; 76705; 80048; 80053; 80061; 80076; 81003; 82010; 82150; 82948; 83036; 83690; 83735; 84100; 85007; 85025; 85027; 88305; 88312; 88342; 96361; 96374; 96375; 96376; 99284; J0500; J1650; J1815; J1817; J1885; J2001; J2250; J2405; J2550; J2765; J3010; J7030; Q9967

== ENCOUNTER 2022-03-08 09:37 | Inpatient (IN) | payer OTHER ==
[~2022-03-08] VITALS: Ht 175.3 cm; Wt 69.1 kg
[2022-03-08] VITALS (36 sets, daily range): BP systolic 108–153; BP diastolic 52–91
[~2022-03-08 09:37] MED LIST changes: +DICYCLOMINE HCL20 MG PO; +ONDANSETRON HCL4 MG PO; +PAXLOVID 150-11 EACH PO; +PROTONIX20 MG PO; +REGLAN5 MG PO
[2022-03-08] MEDS ORDERED: ONDANSETRON HCL INJ 2MG/ML 2ML 2 MG/ML VIAL IV STA (10:06)
[2022-03-08] MEDS ORDERED: FAMOTIDINE 20 MG/2 ML VIAL IV STA (10:06)
[2022-03-08] MEDS ORDERED: ONDANSETRON HCL INJ 2MG/ML 2ML 2 MG/ML VIAL ONE (10:15)
[2022-03-08] MEDS ORDERED: SODIUM CHLORIDE 0.9% 1000ML 1,000 ML ONE ×3 (10:15→12:25)
[2022-03-08] MEDS ORDERED: INSULIN REGULAR, HUMAN 100 UNIT/1 ML IV ONE (10:15)
[2022-03-08] MEDS ORDERED: FAMOTIDINE 20 MG/2 ML VIAL IV ONE (10:15)
[2022-03-08] MEDS ORDERED: SODIUM CHLORIDE 0.9% 1000ML 1,000 ML IV ONE ×2 (10:15→10:30)
[2022-03-08] MEDS ORDERED: INSULIN REGULAR, HUMAN 100 UNIT/1 ML ONE (10:25)
[2022-03-08] MEDS ORDERED: NOVOLOG MI100 UNIT/1 SC (10:27)
[2022-03-08] MEDS ORDERED: LANTUS 3ML100 UNITS/ (10:27)
[2022-03-08] MEDS ORDERED: Vancomycin IV 1 GM in SODIUM CHLORIDE 0.9% 250ML 250 ML IV ONE (10:30)
[2022-03-08] MEDS ORDERED: Vancomycin IV 1 GM VIAL ONE (10:36)
[2022-03-08] MEDS ORDERED: PIPERACILLIN/TAZOBACTAM 3.375 GM VIAL ONE (10:36)
[2022-03-08] MEDS ORDERED: SODIUM CHLORIDE 0.9% 250ML 250 ML ONE (10:36)
[2022-03-08] MEDS ORDERED: IOPAMIDOL 370 MG/ML 100 ML INFUS..BTL INJ ONE (10:47)
[2022-03-08] MEDS ORDERED: SODIUM CHLORIDE 0.9% 1000ML 1,000 ML IV SCH ×2 (11:00→11:15)
[2022-03-08] MEDS ORDERED: ONDANSETRON HCL INJ 2MG/ML 2ML 2 MG/ML VIAL IV PRN (11:00)
[2022-03-08] MEDS ORDERED: KETOROLAC TROMETHAMINE 30 MG/ML VIAL IV STA (11:03)
[2022-03-08] MEDS ORDERED: MAGNESIUM SULF 1GRAM/DEXTROSE 100 ML IV PRN ×2 (11:15→14:30)
[2022-03-08] MEDS ORDERED: DEXTROSE 5%/0.45% SOD CHL 1,000 ML IV SCH (11:15)
[2022-03-08] MEDS ORDERED: POTASSIUM CHLORIDE 20MEQ/100ML 200 ML IV PRN (11:15)
[2022-03-08] MEDS ORDERED: INSULIN REGULAR, HUMAN 3ML VL 100 UNIT in SODIUM CHLORIDE 0.9% 100 ML IV SCH ×2 (11:15)
[2022-03-08] MEDS ORDERED: Morphine 2mg Syringe 2 MG/ML SYR IV ONE (15:00)
[2022-03-08] MEDS: SODIUM CHLORIDE 0.9% 1000ML 1,000 ML IV SCH (15:12)
[2022-03-08] MEDS ORDERED: ACETAMINOPHEN 325 MG TAB PO PRN (15:30)
[2022-03-08 15:46] LABS: ANION GAP 20.7 mmol/L (8-16); CALCIUM 8.7 mg/dL (8.4-10.2); CREATININE, SERUM 1.16 mg/dL (0.72-1.25); MAGNESIUM 1.9 MG/DL (1.3-2.1); POTASSIUM 3.7 mmol/L (3.5-5.1)
[2022-03-08 16:11] LABS: AMYLASE 27 U/L (25-125); LIPASE 13 U/L (8-78)
[2022-03-08] MEDS: DEXTROSE 5%/0.45% SOD CHL 1,000 ML IV SCH ×2 (16:39→23:15)
[2022-03-08 19:27] LABS: ANION GAP 15.3 mmol/L (8-16); CALCIUM 9.1 mg/dL (8.4-10.2); CREATININE, SERUM 1.07 mg/dL (0.72-1.25); POTASSIUM 3.3 mmol/L (3.5-5.1)
[2022-03-08] MEDS: POTASSIUM CHLORIDE 20MEQ/100ML 200 ML IV PRN ×2 (20:02→23:14)
[2022-03-08] MEDS ORDERED: ZOLPIDEM TARTRATE 5 MG TAB PO PRN (21:00)
[2022-03-08 22:54] LABS: ANION GAP 12.4 mmol/L (8-16); CALCIUM 8.8 mg/dL (8.4-10.2); CREATININE, SERUM 0.87 mg/dL (0.72-1.25); MAGNESIUM 1.9 MG/DL (1.3-2.1); POTASSIUM 3.4 mmol/L (3.5-5.1)
[2022-03-08] MEDS ORDERED: METOCLOPRAMIDE HCL 10 MG/2ML VIAL IV ONE (23:15)
[2022-03-09] VITALS (71 sets, daily range): BP systolic 92–147; BP diastolic 59–103
[2022-03-09 03:00] LABS: ANION GAP 13.7 mmol/L (8-16); CALCIUM 8.7 mg/dL (8.4-10.2); CREATININE, SERUM 0.8 mg/dL (0.72-1.25); MAGNESIUM 2.1 MG/DL (1.3-2.1); POTASSIUM 3.7 mmol/L (3.5-5.1)
[2022-03-09] MEDS: INSULIN REGULAR, HUMAN 3ML VL 100 UNIT in SODIUM CHLORIDE 0.9% 100 ML IV SCH ×4 (03:41→17:58)
[2022-03-09] MEDS: ONDANSETRON HCL INJ 2MG/ML 2ML 2 MG/ML VIAL IV PRN ×2 (05:53→15:08)
[2022-03-09] MEDS: DEXTROSE 5%/0.45% SOD CHL 1,000 ML IV SCH ×3 (07:11→22:11)
[2022-03-09 07:53] LABS: ANION GAP 13.5 mmol/L (8-16); CALCIUM 8.3 mg/dL (8.4-10.2); CREATININE, SERUM 0.76 mg/dL (0.72-1.25); MAGNESIUM 1.9 MG/DL (1.3-2.1); POTASSIUM 3.5 mmol/L (3.5-5.1)
[2022-03-09] MEDS: METOCLOPRAMIDE HCL 10 MG/2ML VIAL IV SCH ×4 (07:57→20:04)
[2022-03-09 08:35] LABS: BASOPHILS % 0.1 % (0.0-1.0); HEMATOCRIT 41.1 % (38.2-49.6); HEMOGLOBIN 13.9 g/dL (14.0-18.0); LYMPHOCYTES # (AUTO) 1.1 (1.0-3.2); LYMPHOCYTES % 6.1 % (18.0-39.1); MEAN CORPUSCULAR HEMOGLOBIN 31.5 pg (28-32); MEAN CORPUSCULAR HGB CONC 33.8 g/dL (31-35); MEAN CORPUSCULAR VOLUME 93.2 fL (81-99); MONOCYTES # (AUTO) 1.1 (0.2-0.8); MONOCYTES % 6.2 % (4.4-11.3); NEUTROPHILS # (AUTO) 15.4 (2.1-6.9); NEUTROPHILS % 87.1 % (38.7-80.0); PLATELET COUNT 212 x10e3/uL (140-360); RED BLOOD COUNT 4.41 x10e6/uL (4.3-5.7); RED CELL DISTRIBUTION WIDTH 11.2 % (11.7-14.4)
[2022-03-09 10:51] LABS: CLARITY,URINE CLEAR (CLEAR); COLOR,URINE YELLOW (YELLOW); KETONES,URINE TRACE (NEGATIVE); LEUKOCYTE ESTERASE ,URINE NEGATIVE (NEGATIVE); NITRITE,URINE NEGATIVE (NEGATIVE); PROTEIN,URINE DIPSTICK NEGATIVE (NEGATIVE); URINE UROBILINOGEN 0.2 mg/dL (0.2 - 1)
[2022-03-09 11:00] LABS: WBC,URINE (MAN) 0-5 /HPF (0-5)
[2022-03-09 11:01] LABS: ANION GAP 12.6 mmol/L (8-16); BACTERIA,URINE FEW /HPF; CALCIUM 8.5 mg/dL (8.4-10.2); CREATININE, SERUM 0.68 mg/dL (0.72-1.25); EPITHELIAL CELLS,URINE RARE /LPF; MAGNESIUM 1.9 MG/DL (1.3-2.1); MUCUS,URINE RARE (RARE); POTASSIUM 3.6 mmol/L (3.5-5.1); RBC,URINE 0-5 /HPF (0-5)
[2022-03-09] MEDS: SODIUM CHLORIDE 0.9% 1000ML 1,000 ML IV SCH ×3 (14:30→22:30)
[2022-03-09] MEDS ORDERED: PROMETHAZINE 25MG/ NS 50ML (IV) IV ONE (15:45)
[2022-03-09] MEDS ORDERED: PROMETHAZINE 12.5MG/ NACL 0.9% 12.5 MG/50 ML BAG IV PRN (15:45)
[2022-03-09 16:03] LABS: ANION GAP 14.6 mmol/L (8-16); CREATININE, SERUM 0.69 mg/dL (0.72-1.25); POTASSIUM 3.6 mmol/L (3.5-5.1)
[2022-03-09 20:11] LABS: ANION GAP 12.5 mmol/L (8-16); CALCIUM 8.4 mg/dL (8.4-10.2); CREATININE, SERUM 0.62 mg/dL (0.72-1.25); MAGNESIUM 1.9 MG/DL (1.3-2.1); POTASSIUM 3.5 mmol/L (3.5-5.1)
[2022-03-10] VITALS (31 sets, daily range): BP systolic 105–146; BP diastolic 55–88
[2022-03-10] MEDS ORDERED: PANTOPRAZOLE SOD 40 MG TABEC PO ONE
[2022-03-10 00:53] LABS: ANION GAP 12.1 mmol/L (8-16); CALCIUM 8.3 mg/dL (8.4-10.2); CREATININE, SERUM 0.65 mg/dL (0.72-1.25); MAGNESIUM 1.9 MG/DL (1.3-2.1); POTASSIUM 3.1 mmol/L (3.5-5.1)
[2022-03-10] MEDS: POTASSIUM CHLORIDE 20MEQ/100ML 200 ML IV PRN ×4 (01:06→21:03)
[2022-03-10] MEDS: SODIUM CHLORIDE 0.9% 1000ML 1,000 ML IV SCH ×6 (02:30→22:30)
[2022-03-10] MEDS: DEXTROSE 5%/0.45% SOD CHL 1,000 ML IV SCH ×7 (04:48→23:34)
[2022-03-10] MEDS ORDERED: MAGNESIUM SULF 1GRAM/DEXTROSE 100 ML IV ONE ×2 (05:01→17:30)
[2022-03-10 05:04] LABS: ANION GAP 14.4 mmol/L (8-16); CALCIUM 8.1 mg/dL (8.4-10.2); CREATININE, SERUM 0.64 mg/dL (0.72-1.25); POTASSIUM 3.4 mmol/L (3.5-5.1)
[2022-03-10 07:16] LABS: BASOPHILS % 0.1 % (0.0-1.0); EOSINOPHILS # (AUTO) 0.1 (0.0-0.4); EOSINOPHILS % 0.7 % (0.0-6.0); HEMATOCRIT 36.3 % (38.2-49.6); HEMOGLOBIN 12.9 g/dL (14.0-18.0); LYMPHOCYTES # (AUTO) 2.8 (1.0-3.2); LYMPHOCYTES % 38.3 % (18.0-39.1); MEAN CORPUSCULAR HEMOGLOBIN 31.9 pg (28-32); MEAN CORPUSCULAR HGB CONC 35.5 g/dL (31-35); MEAN CORPUSCULAR VOLUME 89.6 fL (81-99); MONOCYTES # (AUTO) 0.8 (0.2-0.8); MONOCYTES % 11.5 % (4.4-11.3); NEUTROPHILS # (AUTO) 3.6 (2.1-6.9); NEUTROPHILS % 49.1 % (38.7-80.0); PLATELET COUNT 166 x10e3/uL (140-360); RED BLOOD COUNT 4.05 x10e6/uL (4.3-5.7); RED CELL DISTRIBUTION WIDTH 11.8 % (11.7-14.4)
[2022-03-10 07:49] LABS: ALBUMIN 3.1 g/dL (3.5-5.0); ALBUMIN/GLOBULIN RATIO 1.7 (0.8-2.0); ANION GAP 12.3 mmol/L (8-16); CREATININE, SERUM 0.63 mg/dL (0.72-1.25); POTASSIUM 3.3 mmol/L (3.5-5.1)
[2022-03-10] MEDS: ONDANSETRON HCL INJ 2MG/ML 2ML 2 MG/ML VIAL IV SCH ×3 (08:33→17:33)
[2022-03-10] MEDS: METOCLOPRAMIDE HCL 10 MG/2ML VIAL IV SCH ×5 (08:33→21:03)
[2022-03-10] MEDS: INSULIN REGULAR, HUMAN 3ML VL 100 UNIT in SODIUM CHLORIDE 0.9% 100 ML IV SCH ×2 (09:15)
[2022-03-10] MEDS ORDERED: POTASSIUM CHLORIDE 20MEQ/100ML 100 ML IV ONE (10:15)
[2022-03-10 11:57] LABS: ANION GAP 13.3 mmol/L (8-16); CREATININE, SERUM 0.6 mg/dL (0.72-1.25); MAGNESIUM 1.8 MG/DL (1.3-2.1); POTASSIUM 3.3 mmol/L (3.5-5.1)
[2022-03-10 16:26] LABS: ANION GAP 13.7 mmol/L (8-16); CALCIUM 8.2 mg/dL (8.4-10.2); CREATININE, SERUM 0.63 mg/dL (0.72-1.25); MAGNESIUM 1.7 MG/DL (1.3-2.1); POTASSIUM 3.7 mmol/L (3.5-5.1)
[2022-03-10 19:56] LABS: ANION GAP 13.9 mmol/L (8-16); BLOOD UREA NITROGEN < 5 mg/dL (7-26); CALCIUM 8.4 mg/dL (8.4-10.2); CARBON DIOXIDE 25 mmol/L (22-29); CHLORIDE 106 mmol/L (98-107); CREATININE, SERUM 0.62 mg/dL (0.72-1.25); GLUCOSE 82 mg/dL (74-118); SODIUM 142 mmol/L (136-145)
[2022-03-10 19:57] LABS: BUN/CREATININE RATIO 8 (6-25)
[2022-03-10 19:58] LABS: POTASSIUM 2.9 mmol/L (3.5-5.1)
[2022-03-11] VITALS (17 sets, daily range): BP systolic 91–131; BP diastolic 58–93
[2022-03-11 00:17] LABS: ANION GAP 11.5 mmol/L (8-16); CALCIUM 7.9 mg/dL (8.4-10.2); CREATININE, SERUM 0.61 mg/dL (0.72-1.25)
[2022-03-11 00:18] LABS: POTASSIUM 3.5 mmol/L (3.5-5.1)
[2022-03-11] MEDS: SODIUM CHLORIDE 0.9% 1000ML 1,000 ML IV SCH ×3 (00:25→16:04)
[2022-03-11 07:56] LABS: BASOPHILS % 0.2 % (0.0-1.0); EOSINOPHILS # (AUTO) 0.1 (0.0-0.4); EOSINOPHILS % 1.1 % (0.0-6.0); HEMOGLOBIN 13.4 g/dL (14.0-18.0); LYMPHOCYTES # (AUTO) 1.9 (1.0-3.2); MEAN CORPUSCULAR HEMOGLOBIN 31.5 pg (28-32); MEAN CORPUSCULAR HGB CONC 32.7 g/dL (31-35); MEAN CORPUSCULAR VOLUME 96.2 fL (81-99); MONOCYTES # (AUTO) 0.7 (0.2-0.8); MONOCYTES % 10.7 % (4.4-11.3); NEUTROPHILS # (AUTO) 3.8 (2.1-6.9); NEUTROPHILS % 58.8 % (38.7-80.0); PLATELET COUNT 162 x10e3/uL (140-360); RED BLOOD COUNT 4.26 x10e6/uL (4.3-5.7); RED CELL DISTRIBUTION WIDTH 11.4 % (11.7-14.4)
[2022-03-11 08:15] LABS: ANION GAP 14.6 mmol/L (8-16); CALCIUM 8.3 mg/dL (8.4-10.2); CREATININE, SERUM 0.71 mg/dL (0.72-1.25); MAGNESIUM 1.9 MG/DL (1.3-2.1); POTASSIUM 4.6 mmol/L (3.5-5.1)
[2022-03-11] MEDS ORDERED: INSULIN GLARGINE 100 UNITS/ML VIAL SQ SCH (08:15)
[2022-03-11] MEDS ORDERED: DEXTROSE 50% SYRINGE 50 ML IV PRN (08:30)
[2022-03-11] MEDS: METOCLOPRAMIDE HCL 10 MG/2ML VIAL IV SCH ×4 (08:33→20:39)
[2022-03-11] MEDS: ONDANSETRON HCL INJ 2MG/ML 2ML 2 MG/ML VIAL IV SCH ×3 (08:33→19:32)
[2022-03-11] MEDS: INSULIN REGULAR, HUMAN 100 UNIT/1 ML SQ SCH ×3 (12:13→20:41)
[2022-03-11 16:31] LABS: ANION GAP 14.2 mmol/L (8-16); CALCIUM 8.8 mg/dL (8.4-10.2); CREATININE, SERUM 0.71 mg/dL (0.72-1.25); MAGNESIUM 2.1 MG/DL (1.3-2.1); POTASSIUM 4.2 mmol/L (3.5-5.1)
[2022-03-12] VITALS (12 sets, daily range): BP systolic 110–138; BP diastolic 53–126
[2022-03-12] MEDS: SODIUM CHLORIDE 0.9% 1000ML 1,000 ML IV SCH (04:32)
[2022-03-12 05:14] LABS: CALCIUM 8.4 mg/dL (8.4-10.2); CREATININE, SERUM 0.68 mg/dL (0.72-1.25); MAGNESIUM 1.8 MG/DL (1.3-2.1)
[2022-03-12] MEDS: METOCLOPRAMIDE HCL 10 MG/2ML VIAL IV SCH ×2 (07:55→11:13)
[2022-03-12] MEDS: ONDANSETRON HCL INJ 2MG/ML 2ML 2 MG/ML VIAL IV SCH ×2 (07:56→11:13)
[2022-03-12] MEDS: INSULIN REGULAR, HUMAN 100 UNIT/1 ML SQ SCH ×2 (08:05→11:11)
[2022-03-12] MEDS ORDERED: LANTUS 3ML100 UNITS/ SQ (10:36)
[2022-03-12] MEDS ORDERED: PROTONIX20 MG PO (10:36)
[2022-03-12] MEDS ORDERED: ONDANSETRON HCL4 MG PO (10:36)
[2022-03-12] MEDS ORDERED: BLOOD GLUCOSE1 EAC1 SQ (10:52)
[2022-03-12] MEDS ORDERED: NOVOLOG MI100 UNIT/1 SC (10:52)
== END 2022-03-12 13:46 | disposition home or self-care (01) | DRG 638 ==
LOC: FSED 10:01 → ERHOLD 11:02 → ICU 13:49
PROVIDERS: ADMIT Internal Medicine; ATTEND Internal Medicine
DX: E10.10 Type 1 diabetes mellitus with ketoacidosis without coma (principal); E87.1 Hypo-osmolality and hyponatremia; E10.43 Type 1 diabetes mellitus with diabetic autonomic (poly)neuropathy; R50.9 Fever, unspecified; E86.0 Dehydration; K31.84 Gastroparesis; D72.829 Elevated white blood cell count, unspecified; K21.9 Gastro-esophageal reflux disease without esophagitis; E87.6 Hypokalemia; E10.649 Type 1 diabetes mellitus with hypoglycemia without coma; K25.9 Gastric ulcer, unspecified as acute or chronic, without hemorrhage or perforation; Z79.4 Long term (current) use of insulin; Z79.899 Other long term (current) drug therapy; Z91.14 Patient's other noncompliance with medication regimen; Z91.199 Patient's noncompliance with other medical treatment and regimen due to unspecified reason; Z83.3 Family history of diabetes mellitus; Z82.49 Family history of ischemic heart disease and other diseases of the circulatory system; Z83.79 Family history of other diseases of the digestive system; Z72.0 Tobacco use
CPT/HCPCS: 36415; 71045; 74177; 80048; 80053; 81001; 81003; 82150; 82948; 83605; 83690; 83735; 85025; 87040; 96374; 96375; 99284; J0696; J1815; J1817; J1885; J2270; J2405; J2543; J2550; J2765; J3370; J3475; J3480; J7030; J7050; Q9967

== ENCOUNTER 2022-06-18 08:49 | Emergency (ER) | payer OTHER ==
[~2022-06-18] VITALS: Ht 175.3 cm; Wt 73.6 kg
[~2022-06-18 08:49] MED LIST changes: +BLOOD GLUCOSE1 EAC1 SQ; +LANTUS 3ML100 UNITS/; +LANTUS 3ML100 UNITS/ SQ; +NOVOLOG MI100 UNIT/1 SC
[2022-06-18] MEDS ORDERED: SODIUM CHLORIDE 0.9% 1000ML 1,000 ML ONE ×3 (09:01→11:35)
[2022-06-18] MEDS ORDERED: ONDANSETRON HCL INJ 2MG/ML 2ML 2 MG/ML VIAL ONE (09:01)
[2022-06-18] MEDS ORDERED: SODIUM CHLORIDE 0.9% 1000ML 1,000 ML IV SCH (09:45)
[2022-06-18] MEDS ORDERED: METOCLOPRAMIDE HCL 10 MG/2ML VIAL IV ONE (09:45)
[2022-06-18] MEDS ORDERED: SODIUM CHLORIDE 0.9% 1000ML 1,000 ML IV ONE ×2 (10:00→12:00)
[2022-06-18] MEDS ORDERED: ONDANSETRON HCL INJ 2MG/ML 2ML 2 MG/ML VIAL IV STA ×2 (10:00→11:59)
[2022-06-18] MEDS ORDERED: METOCLOPRAMIDE HCL 10 MG/2ML VIAL ONE (10:09)
[2022-06-18] MEDS ORDERED: KETOROLAC TROMETHAMINE 30 MG/ML VIAL ONE (11:35)
[2022-06-18] MEDS ORDERED: KETOROLAC TROMETHAMINE 30 MG/ML VIAL IV STA (12:11)
[2022-06-18] MEDS ORDERED: FAMOTIDINE 20 MG/2 ML VIAL IV STA (12:40)
[2022-06-18] MEDS ORDERED: PROMETHAZINE 25MG/ NS 50ML (IV) IV ONE (12:45)
[2022-06-18] MEDS ORDERED: PROMETHAZINE HCL (IM) 25 MG/ML VIAL IM ONE (12:51)
[2022-06-18] MEDS ORDERED: SODIUM CHLORIDE 0.9% 100 ML ONE (12:52)
[2022-06-18] MEDS ORDERED: FAMOTIDINE 20 MG/2 ML VIAL IV ONE (12:52)
[2022-06-18] MEDS ORDERED: PANTOPRAZOLE SO40 MG PO (13:58)
[2022-06-18] MEDS ORDERED: METOCLOPRAMIDE10 MG PO (13:58)
[2022-06-18] MEDS ORDERED: ONDANSETRON ODT4 MG PO (13:59)
[2022-06-18 14:17] VITALS: BP 132/68
== END 2022-06-18 14:18 | disposition home or self-care (01) ==
LOC: FSED 09:01
DX: R11.2 Nausea with vomiting, unspecified (principal); K52.9 Noninfective gastroenteritis and colitis, unspecified; E10.65 Type 1 diabetes mellitus with hyperglycemia; Z91.148 Patient's other noncompliance with medication regimen for other reason
CPT/HCPCS: 36415; 71046; 74177; 80048; 80076; 81003; 82948; 85025; 96374; 96375; 99284; C9113; J1885; J2405; J2550; J2765; J7030; J7050

== ENCOUNTER 2022-08-18 11:18 | Emergency (ER) | payer OTHER ==
[~2022-08-18] VITALS: Ht 170.2 cm; Wt 72.6 kg
[~2022-08-18 11:18] MED LIST changes: +METOCLOPRAMIDE10 MG PO; +PANTOPRAZOLE SO40 MG PO
[2022-08-18] MEDS ORDERED: FAMOTIDINE 20 MG/2 ML VIAL IV STA (12:07)
[2022-08-18] MEDS ORDERED: KETOROLAC TROMETHAMINE 30 MG/ML VIAL IV STA (12:07)
[2022-08-18] MEDS ORDERED: ONDANSETRON HCL INJ 2MG/ML 2ML 2 MG/ML VIAL IV STA (12:07)
[2022-08-18] MEDS ORDERED: SODIUM CHLORIDE 0.9% 1000ML 1,000 ML ONE (12:11)
[2022-08-18] MEDS ORDERED: SODIUM CHLORIDE 0.9% 1000ML 1,000 ML IV ONE ×2 (12:15→15:00)
[2022-08-18] MEDS ORDERED: METOCLOPRAMIDE HCL 10 MG/2ML VIAL IV ONE (12:45)
[2022-08-18] MEDS ORDERED: METOCLOPRAMIDE HCL 10 MG/2ML VIAL ONE (14:55)
[2022-08-18] MEDS ORDERED: ONDANSETRON ODT4 MG PO (16:17)
[2022-08-18] MEDS ORDERED: PANTOPRAZOLE SO40 MG PO (16:18)
[2022-08-18] MEDS ORDERED: METOCLOPRAMIDE10 MG PO (16:19)
[2022-08-18 16:21] VITALS: O2SAT 100
== END 2022-08-18 16:40 | disposition home or self-care (01) ==
LOC: FSED 11:40
DX: R10.10 Upper abdominal pain, unspecified (principal); E10.43 Type 1 diabetes mellitus with diabetic autonomic (poly)neuropathy; E10.9 Type 1 diabetes mellitus without complications; K31.84 Gastroparesis; K27.9 Peptic ulcer, site unspecified, unspecified as acute or chronic, without hemorrhage or perforation
CPT/HCPCS: 74176; 80048; 80076; 81003; 85025; 96374; 96375; 96376; 99284; C9113; J1885; J2405; J2765; J7030

== ENCOUNTER 2024-05-25 22:54 | Emergency (ER) | payer SELFPAY ==
[~2024-05-25] VITALS: Ht 175.3 cm; Wt 90.7 kg
[2024-05-25 23:00] VITALS: PULSE 86; RESP 18; TEMP 98.6
[2024-05-26] MEDS: IBUPROFEN 600 MG TAB PO STA (00:17)
[2024-05-26] MEDS: Clindamycin INJ 150 MG/ML 600 MG Vial IM ONE (00:20)
[2024-05-26] MEDS: DIPHTH,PERTUSS(ACELL),TET VAC 0.5 ML SYRINGE IM ONE (00:43)
[2024-05-26] MEDS ORDERED: DOXYCYCLINE HY100 MG PO (00:45)
[2024-05-26] MEDS ORDERED: CLEOCIN HCL300 MG PO (00:45)
[2024-05-26 00:57] VITALS: BP 140/87; PULSE 84; RESP 15; TEMP 98.3; O2SAT 99
== END 2024-05-26 01:07 | disposition home or self-care (01) ==
LOC: FSED 23:09
DX: L03.115 Cellulitis of right lower limb (principal); S80.811A Abrasion, right lower leg, initial encounter; E10.9 Type 1 diabetes mellitus without complications
CPT/HCPCS: 99284

== ENCOUNTER 2024-06-01 09:01 | Emergency (ER) | payer SELFPAY ==
[~2024-06-01] VITALS: Ht 175.3 cm; Wt 86.4 kg
[~2024-06-01 09:01] MED LIST changes: +CLEOCIN HCL300 MG PO; +DOXYCYCLINE HY100 MG PO
[2024-06-01] MEDS ORDERED: PIPERACILLIN/TAZOBACTAM SOD 2.25 GM VIAL ONE (10:29)
[2024-06-01] MEDS ORDERED: IOPAMIDOL 370 MG/ML 100 ML INFUS..BTL INJ ONE (10:35)
[2024-06-01] MEDS: LACTATED RINGER'S 1,000 ML INJ ONE (10:54)
[2024-06-01] MEDS: KETOROLAC TROMETHAMINE 30 MG/ML VIAL IV STA (10:55)
[2024-06-01] MEDS: PIPERACILLIN/TAZOBACTAM 4.5 GM in SODIUM CHLORIDE 0.9% 100 ML IV ONE (10:55)
[2024-06-01] MEDS: Vancomycin IV 1 GM in SODIUM CHLORIDE 0.9% 250ML 250 ML IV ONE (11:00)
[2024-06-01] MEDS ORDERED: IBUPROFEN800 MG PO (12:07)
[2024-06-01 12:59] VITALS: PULSE 74; RESP 14; TEMP 98; O2SAT 100
[2024-06-01 15:04] LABS: ABG HCO3 23 mmol/L (22-26); ABG PCO2 46 mmHg (35-45); ABG PH 7.31 (7.35-7.45); ABG PO2 139 mmHg (80-105); ABG TCO2 24
== END 2024-06-01 12:59 | disposition home or self-care (01) ==
LOC: FSED 09:10
DX: L03.115 Cellulitis of right lower limb (principal); E10.65 Type 1 diabetes mellitus with hyperglycemia; Z87.19 Personal history of other diseases of the digestive system; F17.210 Nicotine dependence, cigarettes, uncomplicated
CPT/HCPCS: 36415; 73701; 80048; 80076; 81003; 82805; 85025; 85610; 96374; 99284; J1885; J2543; J3370; J7050 ×2; J7121; Q9967

== ENCOUNTER 2024-08-09 21:55 | Emergency (ER) | payer SELFPAY ==
[~2024-08-09] VITALS: Ht 177.8 cm; Wt 91.2 kg
[~2024-08-09 21:55] MED LIST changes: +IBUPROFEN800 MG PO
[2024-08-09] MEDS: SODIUM CHLORIDE 0.9% 1000ML 1,000 ML IV ONE (23:16)
[2024-08-09] MEDS: ONDANSETRON HCL INJ 2MG/ML 2ML 2 MG/ML VIAL IV STA (23:16)
[2024-08-10] MEDS ORDERED: LANTUS 3ML100 UNITS/ SC (00:38)
[2024-08-10] MEDS ORDERED: NOVOLOG MI100 UNIT/1 SC (00:44)
[2024-08-10 01:22] VITALS: PULSE 76; RESP 16; TEMP 97.8
[2024-08-10 01:29] VITALS: BP 124/83; PULSE 76; RESP 16; TEMP 97.8; O2SAT 99
[2024-08-10] MEDS: INSULIN REGULAR, HUMAN 100 UNIT/1 ML IV ONE (06:52)
== END 2024-08-10 01:32 | disposition home or self-care (01) ==
LOC: FSED 21:58
DX: R51.9 Headache, unspecified (principal); E10.65 Type 1 diabetes mellitus with hyperglycemia; R11.0 Nausea; Z91.148 Patient's other noncompliance with medication regimen for other reason; Z87.19 Personal history of other diseases of the digestive system
CPT/HCPCS: 70450; 80053; 80307; 81003; 85025; 99284; J2405; J7030

== ENCOUNTER 2024-08-16 02:23 | Emergency (ER) | payer SELFPAY ==
[~2024-08-16] VITALS: Ht 175.3 cm; Wt 89.8 kg
[~2024-08-16 02:23] MED LIST changes: +LANTUS 3ML100 UNITS/ SC
[2024-08-16 02:27] VITALS: PULSE 80; RESP 17; TEMP 97.7
[2024-08-16] MEDS ORDERED: AMOX TR-K CLV1 EAC1 PO (03:18)
[2024-08-16] MEDS ORDERED: ULTRAM 50MG50 MG PO (03:19)
[2024-08-16 03:20] VITALS: BP 133/85; PULSE 80; RESP 17; TEMP 97.8; O2SAT 98
== END 2024-08-16 03:23 | disposition home or self-care (01) ==
LOC: FSED 02:35
DX: S61.250A Open bite of right index finger without damage to nail, initial encounter (principal); W54.0XXA Bitten by dog, initial encounter; Y92.89 Other specified places as the place of occurrence of the external cause; E10.9 Type 1 diabetes mellitus without complications; Z91.148 Patient's other noncompliance with medication regimen for other reason; Z87.19 Personal history of other diseases of the digestive system
CPT/HCPCS: 99284

== ENCOUNTER 2024-11-03 09:53 | Emergency (ER) | payer SELFPAY ==
[~2024-11-03] VITALS: Ht 175.3 cm; Wt 88.9 kg
[~2024-11-03 09:53] MED LIST changes: +AMOX TR-K CLV1 EAC1 PO; +ULTRAM 50MG50 MG PO
[2024-11-03 10:05] VITALS: PULSE 86; RESP 16; TEMP 98; O2SAT 99
[2024-11-03] MEDS ORDERED: PEPCID40 MG PO (10:54)
== END 2024-11-03 11:14 | disposition home or self-care (01) ==
LOC: FSED 10:14
DX: J02.9 Acute pharyngitis, unspecified (principal); K21.9 Gastro-esophageal reflux disease without esophagitis; E10.8 Type 1 diabetes mellitus with unspecified complications; Z11.52 Encounter for screening for COVID-19; Z91.148 Patient's other noncompliance with medication regimen for other reason; Z87.19 Personal history of other diseases of the digestive system
CPT/HCPCS: 0223U; 83518; 87400; 99284

== ENCOUNTER 2024-12-17 19:10 | Emergency (ER) | payer SELFPAY ==
[~2024-12-17] VITALS: Ht 175.3 cm; Wt 85.9 kg
[~2024-12-17 19:10] MED LIST changes: +PEPCID40 MG PO
[2024-12-17 19:20] VITALS: PULSE 99; RESP 20; TEMP 98.7
[2024-12-17] MEDS ORDERED: AMOXICILLIN/CLAVULANATE K 875 MG TAB ONE (19:23)
[2024-12-17] MEDS: AMOXICILLIN/CLAVULANATE K 875 MG TAB PO STA (19:24)
[2024-12-17] MEDS: TRAMADOL HCL 50 MG TAB PO ONE (19:34)
[2024-12-17] MEDS: BACITRACIN ZINC 0.9GM TP ONE (20:00)
[2024-12-17] MEDS ORDERED: AUGMENTIN 500-1 EACH PO (20:01)
[2024-12-17] MEDS ORDERED: BACITRACIN ZIN1 EACH EXT (20:03)
[2024-12-17 20:59] VITALS: BP 134/82; PULSE 88; RESP 18; TEMP 98.7; O2SAT 98
== END 2024-12-17 21:04 | disposition home or self-care (01) ==
LOC: FSED 19:14
DX: S61.432A Puncture wound without foreign body of left hand, initial encounter (principal); S61.431A Puncture wound without foreign body of right hand, initial encounter; W54.0XXA Bitten by dog, initial encounter; Y92.89 Other specified places as the place of occurrence of the external cause; E10.8 Type 1 diabetes mellitus with unspecified complications; Z91.148 Patient's other noncompliance with medication regimen for other reason; Z87.19 Personal history of other diseases of the digestive system
CPT/HCPCS: 99283